=== PATIENT | female | born 1950 | race Caucasian/White ===

== ENCOUNTER 2025-10-21 12:09 | Outpatient (CLI) | payer MEDICARE, OTHER ==
[~2025-10-21 12:09] MED LIST: Iopamidol 370 76% 100 ML VIAL ONE
[2025-10-21 13:47] LABS: Estimated GFR - POC 90.0
== END 2025-10-21 12:10 | disposition home or self-care (01) ==
LOC: CT 12:09
PROVIDERS: ATTEND Internal Medicine Gastroenterology
DX: K21.9 Gastro-esophageal reflux disease without esophagitis (principal); E11.9 Type 2 diabetes mellitus without complications; R13.10 Dysphagia, unspecified; R10.13 Epigastric pain; R19.8 Other specified symptoms and signs involving the digestive system and abdomen; N28.1 Cyst of kidney, acquired; Z98.84 Bariatric surgery status; Z90.49 Acquired absence of other specified parts of digestive tract
CPT/HCPCS: 36415; 74177; 82565; Q9967

== ENCOUNTER 2025-11-01 10:56 | Outpatient (CLI) | payer MEDICARE | END 2025-11-01 10:57 | disposition home or self-care (01) | LOC: SCSMRI 10:56 | PROVIDERS: ATTEND Internal Medicine Gastroenterology | DX: R93.89 Abnormal findings on diagnostic imaging of other specified body structures (principal) | CPT/HCPCS: 74181; 76376 ==